=== PATIENT | male | born 1955 | race Caucasian/White ===

== ENCOUNTER 2025-07-07 08:11 | Outpatient (CLI) | payer MEDICARE, SELFPAY ==
--- NOTE | ~2025-07-07 | XR_ITS ---
XR_CERV2-3V_CR INDICATION: M54.2 - Cervicalgia COMPARISON: None TECHNIQUE: AP, lateral and open-mouth odontoid views of the cervical spine were obtained. FINDINGS: The examination demonstrates normal cervical height and alignment. No compression fractures or wedging is noted. The paravertebral soft tissues are unremarkable. Degenerative changes with disc space narrowing and endplate sclerosis at C3-C4 and C5-C6 and C6-C7. IMPRESSION: No acute fracture or subluxation. Reviewed, dictated and finalized at location S. REPAIRER
--- NOTE | ~2025-07-07 | XR_ITS ---
XR shoulder LT min 2V 07/07/2025 08:52 Indication: Left shoulder replacement 2000. Procedure: 3 views left shoulder Comparison: No prior studies for comparison. 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 There is a healed mid shaft fracture. Prosthesis appears to be well seated. Hardware intact. No acute fracture or traumatic malalignment. Impression: 1: No acute bone or joint abnormality. Reviewed, dictated and finalized at location O. CAL DELIVERY TECHNICIAN Impression: 1: No acute bone or joint abnormality.
--- OUTSIDE RECORDS SUMMARY | 2025-07-07 08:18 | XMS_ITS | Encounter Summary ---
Author Organization [facility] Address [address] [place] [address] Phone Care Team Providers Care Roller Shop Utility Worker Name Role Phone Sergio Cardenas MD Primary Care Provider +- [phone] Silas Mcdonnell MD PhD Unavailable Fabrice Bahena MD PhD Unavailable Greg Espinoza MD Unavailable Luz Elena Fritz [facility] Unavailable +[phone] Aki Grande DO Primary Care Provider [phone] Encounter Details Date Type Department Care Team (Latest Contact Info) Description 05/29/2019 Orders Only [facility] Scanning, Provider Social History Tobacco Use Types Packs/Day Years Used Date Smoking Tobacco: Never Smokeless Tobacco: Never Alcohol Use Standard Drinks/Week Comments Not Currently 0 (1 standard drink = 0.6 oz pur e alcohol) Sex and Gender Information Value Date Recorded Sex Assigned at Not on file Legal Sex Male 12:12 AM CHECKMAN Gender Identity Not on file Sexual Orientation Not on file Occupation Industry Job Start Date Job End Date retired Not on file Not on file Not on file documented as of this encounter Plan of Treatment Not on file documented as of this encounter Procedures Procedure Name Priority Date/Time Associated Diagnosis Comments CARDIOLOGY DOCUMENT SCAN 05/29/2019 documented in this encounter Results * SCAN - CARDIOLOGY (05/29/2019) Anatomical Region Laterality Modality Other Provider Scanning [facility] SERVICES PROCEDURES Final Result documented in this encounter Visit Diagnoses Not on filedocumented in this encounter Care Teams Roller Shop Utility Worker Relationship Specialty Start Date End Date Sergio Cardenas MD [address] [facility] [address] [place] [address] PCP - General 04/05/17 10/14/24 Aki Grande DO [address] [facility] [place] [place] Mailstop [phone] [place] [address] PCP - General Internal Medicine 10/15/24 [facility] PhD [address] [place] [address] [address] [facility] [address] [place] [address] Neurologist Neurology 06/26/19 Fabrice Bahena MD PhD [address] [place] [address] [address] [address] Referring Physician Cardiology 08/09/19 Greg Espinoza MD [address] [facility] [address] [place] [address] [place] [address] Surgeon General Surgery 08/26/19 Luz Elena Fritz [facility] [address] [facility] [place] [place] Mailstop [phone] [place], [place] [address] [facility] Outpatient Line Service Supervisor 09/26/23 09/26/23 documented as of this encounter
--- OUTSIDE RECORDS SUMMARY | 2025-07-07 08:18 | XMS_ITS | Encounter Summary ---
Author Organization [facility] Facility Care Team Providers Care Rn Documentation Name Role Phone Elio Pizano MD Primary Care Provider Sergio Cardenas MD Primary Care Provider +- [phone] Keara Aguilar MD Primary Care Provider [phone] Sergio Cardenas MD Primary Care Provider + [phone] Sergio Cardenas MD Primary Care Provider + [phone] Silas Mcdonnell MD PhD Unavailable Fabrice Bahena MD PhD Unavailable [phone] Greg Espinoza MD Unavailable Luz Elena Fritz PRINCIPAL STRATEGIST Unavailable [phone] Aki Grande DO Primary Care Provider [phone] Encounter Details Date Type Department Care Team (Latest Contact Info) Description 06/30/2015 Orders Only [facility] CLINCONV ProviderGabriella MD [address] [place] [address] Social History Tobacco Use Types Packs/Day Years Used Date Smoking Tobacco: Never Assessed Sex and Gender Information Value Date Recorded Sex Assigned at Not on file Legal Sex Male 12:12 AM MAJOR DONOR COORDINATOR Gender Identity Not on file Sexual Orientation Not on file documented as of this encounter Plan of Treatment Not on file documented as of this encounter Procedures Procedure Name Priority Date/Time Associated Diagnosis Comments CARDIOLOGY REPORT 04/28/2017 12: 00 AM CDT documented in this encounter Results * CARDIOLOGY REPORT (04/28/2017 12:00 AM CDT) Anatomical Region Laterality Modality Other Narrative 04/28/2017 12:00 AM CDT Ordered by an unspecified provider. us Historical Provider [facility] ROMY SANDERSON Final Result documented in this encounter Visit Diagnoses Not on filedocumented in this encounter Care Teams Rn Documentation Relationship Specialty Start Date End Date Elio Pizano MD PCP - General 11/11/16 01/10/17 Sergio Cardenas MD [address] [address] PCP - General 01/11/17 03/06/17 Keara Aguilar MD [address] [address] PCP - General 03/07/17 03/14/17 Sergio Cardenas MD [address] [address] PCP - General 03/15/17 04/04/17 Sergio Cardenas MD [address] [address] PCP - General 04/05/17 10/14/24 Aki Grande DO [address] [facility] ([facility]) Mailstop [phone] [place] [address] PCP - General Internal Medicine 10/15/24 Silas Mcdonnell MD PhD [address] [place] [address] Neurologist Neurology 06/26/19 Fabrice Bahena MD PhD [address] [place] [address] Referring Physician Cardiology 08/09/19 Greg Espinoza MD [address] [place] [address] Surgeon General Surgery 08/26/19 Luz Elena Fritz, [facility] [address] [facility] ([facility]) Mailstop [phone] [place] [address] [facility] Outpatient Credit Interviewer 09/26/23 09/26/23 documented as of this encounter
--- OUTSIDE RECORDS SUMMARY | 2025-07-07 08:18 | XMS_ITS | Encounter Summary ---
Author Organization [facility] Facility Care Team Providers Care Humidifier Attendant Name Role Phone Sergio Cardenas MD Primary Care Provider +- [phone] [facility] Unavailable Fabrice Bahena MD PhD Unavailable [phone] Greg Espinoza MD Unavailable [phone] Luz Elena Fritz [facility] Unavailable [phone] Aki Grande DO Primary Care Provider [phone] Encounter Details Date Type Department Care Team (Latest Contact Info) Description 04/05/2017 Orders Only [facility] CLINCONV ProviderGabriella MD [address] [place] [address] Social History Tobacco Use Types Packs/Day Years Used Date Smoking Tobacco: Never Sex and Gender Information Value Date Recorded Sex Assigned at Not on file Legal Sex Male 12:12 AM BILLBOARD ERECTOR HELPER Gender Identity Not on file Sexual Orientation [...] on filedocumented in this encounter Care Teams Humidifier Attendant Relationship Specialty Start Date End Date Sergio Cardenas MD [address] [facility] [address] [address] PCP - General 04/05/17 10/14/24 Aki Grande DO [address] [facility] ([facility] [place] Mailstop [phone] [place] [address] PCP - General Internal Medicine 10/15/24 Silas Mcdonnell MD PhD [address] [place] [address] [address] Neurologist Neurology 06/26/19 Fabrice Bahena MD PhD [address] [place] [address] [address] Referring Physician Cardiology 08/09/19 Greg Espinoza MD [address] [place] [address] [address] Surgeon General Surgery 08/26/19 Luz Elena Fritz LCSW [address] [facility] ([facility] [place]) Mailstop [phone] [place] [address] [facility] Outpatient Senior Software Engineer Analytics 09/26/23 09/26/23 documented as of this encounter
--- OUTSIDE RECORDS SUMMARY | 2025-07-07 08:18 | XMS_ITS | Encounter Summary ---
Author Organization [facility] Facility Care Team Providers Care Icer Air Conditioning Name Role Phone Elio Pizano MD Primary Care Provider [phone] Sergio Cardenas MD Primary Care Provider +- [phone] Keara Aguilar MD Primary Care Provider Sergio Cardenas MD Primary Care Provider + [phone] Sergio Cardenas MD Primary Care Provider + [phone] Silas Mcdonnell MD PhD Unavailable Fabrice Bahena MD PhD Unavailable [phone] Greg Espinoza MD Unavailable Luz Elena Fritz AUTISM TUTOR Unavailable [phone] Aki Grande DO Primary Care Provider [phone] Encounter Details Date Type Department Care Team (Latest Contact Info) Description 02/01/2015 Orders Only [facility] CLINCONV ProviderGabriella MD [address] [place] [address] Social History Tobacco Use Types Packs/Day Years Used Date Smoking Tobacco: Never Assessed Sex and Gender Information Value Date Recorded Sex Assigned at Not on file Legal Sex Male 12:12 AM MATERIAL HANDLER Gender Identity Not on file Sexual Orientation Not on file documented as of this encounter Plan of Treatment Not on file documented as of this encounter Procedures Procedure Name Priority Date/Time Associated Diagnosis Comments CARDIOLOGY REPORT 09/20/2016 12: 00 AM CDT documented in this encounter Results * CARDIOLOGY REPORT (09/20/2016 12:00 AM CDT) Anatomical Region Laterality Modality Other Narrative 09/20/2016 12:00 AM CDT Ordered by an unspecified provider. us Historical Provider [facility] ROMY SANDERSON Final Result documented in this encounter Visit Diagnoses Not on filedocumented in this encounter Care Teams Icer Air Conditioning Relationship Specialty Start Date End Date Elio Pizano MD PCP - General 11/11/16 01/10/17 Sergio Cardenas MD [address] [address] PCP - General 01/11/17 03/06/17 Keara Aguilar MD [address] [address] PCP - General 03/07/17 03/14/17 Sergio Cardenas MD [address] [address] PCP - General 03/15/17 04/04/17 Sergio Cardenas MD [address] [address] PCP - General 04/05/17 10/14/24 Aki Grande DO [address] [facility] ([facility]) Mailstop [phone] [place] [address] PCP - General Internal Medicine 10/15/24 Silas Mcdonnell MD PhD [address] [place] [address] Neurologist Neurology 06/26/19 Fabrice Bahena MD PhD [address] [place] [address] Referring Physician Cardiology 08/09/19 Greg Espinoza MD [address] [place] [address] Surgeon General Surgery 08/26/19 Luz Elena Fritz, [facility] [address] [facility] ([facility]) Mailstop [phone] [place] [address] [facility] Outpatient Supervisor Soakers 09/26/23 09/26/23 documented as of this encounter
--- OUTSIDE RECORDS SUMMARY | 2025-07-07 08:18 | XMS_ITS | Encounter Summary ---
Author Organization [facility] Address [address] [place] [address] Care Team Providers Care Senior Private Client Advisor Name Role Phone Sergio Cardenas MD Primary Care Provider [phone] Silas Mcdonnell MD PhD Unavailable Fabrice Bahena MD PhD Unavailable Greg Espinoza MD Unavailable Luz Elena Fritz [facility] Unavailable Aki Grande DO Primary Care Provider Encounter Details Date Type Department Care Team (Late st Contact Info) Description 11/27/2022 Documentation [facility] [address] [facility] [address] [place] [address] Charline Granda MD [address] [facility] [place] [id number] [place] [address] Social History Tobacco Use Types Packs/Day Years Used Date Smoking Tobacco: Never Smokeless Tobacco: Never Alcohol Use Standard Drinks/Week Comments Not Currently 0 (1 standard drink = 0.6 oz pur e alcohol) AUDIT-C Answer Date Recorded Q1: How often do you have a drink containing alcohol? Never 11/07/2022 Q2: How many drinks containi ng alcohol do you have on a typical day when you are drinking? Patient does not drink Q3: How often do you have si x or more drinks on one occasion? Never 11/07/2022 PHQ-2 Answer Date Recorded PHQ-2 Score 0 07/23/2019 Sex and Gender Information Value Date Recorded Sex Assigned at Not on file Legal Sex Male 12:12 AM SALES CENTER ASSOCIATE Gender Identity Not on file Sexual Orientation Not on file Occupation Industry Job Start Date Job End Date retired Not on file Not on file Not on file documented as of this encounter Plan of Treatment Not on file documented as of this encounter Visit Diagnoses Not on filedocumented in this encounter Care Teams Senior Private Client Advisor Relationship Specialty Start Date End Date Sergio Cardenas MD [address] [place] [address] [address] PCP - General 04/05/17 10/14/24 Aki Grande DO [address] [facility] [place] Mailstop [phone] [place] [address] PCP - General Internal Medicine 10/15/24 Silas Mcdonnell MD PhD [address] [place] [address] [address] Neurologist Neurology 06/26/19 Fabrice Bahena MD PhD [address] [place] [address] [address] Referring Physician Cardiology 08/09/19 Greg Espinoza MD [address] [place] [address] [address] Surgeon General Surgery 08/26/19 Luz Elena Fritz MILLINERY DEPARTMENT MANAGER [address] [facility] [place] Mailstop [phone] [place] [address] [facility] Outpatient Loan Clerk 09/26/23 09/26/23 documented as of this encounter
--- OUTSIDE RECORDS SUMMARY | 2025-07-07 08:18 | XMS_ITS | Encounter Summary ---
Author Organization [facility] Facility Care Team Providers Care Sponge Packer Name Role Phone Elio Pizano MD Primary Care Provider Sergio Cardenas MD Primary Care Provider +- [phone] Keara Aguilar MD Primary Care Provider Sergio Cardenas MD Primary Care Provider + [phone] Sergio Cardenas MD Primary Care Provider + [phone] Silas Mcdonnell MD PhD Unavailable Fabrice Bahena MD PhD Unavailable [phone] Greg Espinoza MD Unavailable Luz Elena Fritz SENIOR ENERGY MARKET COORDINATOR Unavailable [phone] Aki Grande DO Primary Care Provider [phone] Encounter Details Date Type Department Care Team (Latest Contact Info) Description 04/02/2015 Orders Only [facility] CLINCONV ProviderGabriella MD [address] [place] [address] Social History Tobacco Use Types Packs/Day Years Used Date Smoking Tobacco: Never Assessed Sex and Gender Information Value Date Recorded Sex Assigned at Not on file Legal Sex Male 12:12 AM JUDGE'S CLERK Gender Identity Not on file Sexual Orientation Not on file documented as of this encounter Plan of Treatment Not on file documented as of this encounter Procedures Procedure Name Priority Date/Time Associated Diagnosis Comments SCAN - LABS 09/20/2016 12:00 AM CDT documented in this encounter Results * SCAN - LABS (09/20/2016 12:00 AM CDT) Narrative 09/20/2016 12:00 AM CDT Ordered by an unspecified provider. us Historical Provider Final Res ult documented in this encounter Visit Diagnoses Not on filedocumented in this encounter Care Teams Sponge Packer Relationship Specialty Start Date End Date Elio Pizano MD PCP - General 11/11/16 01/10/17 Sergio Cardenas MD [address] [address] PCP - General 01/11/17 03/06/17 Keara Aguilar MD [address] [place] [address] PCP - General 03/07/17 03/14/17 Sergio Cardenas MD [address] [address] PCP - General 03/15/17 04/04/17 Sergio Cardenas MD [address] [address] PCP - General 04/05/17 10/14/24 Aki Grande DO 45[address] [facility] [phone] [place] [address] PCP - General Internal Medicine 10/15/24 Silas Mcdonnell MD PhD [address] [place] [address] Neurologist Neurology 06/26/19 Fabrice Bahena MD PhD [address] [place] [address] Referring Physician Cardiology 08/09/19 Greg Espinoza MD [address] [place] [address] Surgeon General Surgery 08/26/19 Luz Elena Fritz, [facility] [address] [facility] ([facility] Mailstop [phone] [place] [address] [facility] Outpatient Set Up Mechanic 09/26/23 09/26/23 documented as of this encounter
--- OUTSIDE RECORDS SUMMARY | 2025-07-07 08:18 | XMS_ITS ---
Author Organization [facility] Address [address] [place] [address] Care Team Providers Care Balling Machine Operator Name Role Phone Silas Mcdonnell MD PhD Unavailable Fabrice Bahena MD PhD Unavailable Greg Espinoza MD Unavailable Aki Grande DO Primary Care Provider Active Problems Problem Noted Date Diagnosed Date Cardiac arrhythmia 09/20/2023 S/P repair of inguinal hernia 06/16/2023 Right inguinal hernia 05/10/2023 History of revision of total shoulder arthroplas ty 11/28/2022 Failed arthroplasty, initial encounter 3 Status post total replacement of left shoulder 0 09/07/2022 Overview (09/07/2022): Added automatically from request for surgery [id number] Pre-op testing 10/01/2021 Loosening of total shoulder replacement 09/14/19 Overview (09/13/2021): Added automatically from request for surgery [id number] Essential hypertension 08/23/2021 Chronic combined systolic an d diastolic heart failure ([facility]/H[facility]) 04/16/2020 Assessment & Plan (04/08/2021 8:38 PM CDT): He appears euvolemic on exam today with NYHA class I-II symptoms. Unfortunately his LV function has not improved despite PCI, and in fact his LVEF has remained stable ~40% since 2016. We will continue entresto 49-51mg and carvedilol 12.5mg BID, and we will add spironolactone 25mg in hopes of improving LV function. We will reduce lasix to 40mg once daily, as he appears euvolemic and recent NTproBNP have been normal. We will consider stopping lasix at the next visit altogether, since he will be on spironolactone. Assessment & Plan (12/03/2020 1:17 PM CDT): He appears euvolemic on exam with NYHA class 1-2 symptoms. His NT proBNP was in normal range. He has continued to have mild LV systolic dysfunction despite optimal heart failure therapy. We will therefore send him for PCI of the LAD lesion, which had a positive IFR in July 2019. We will continue on carvedilol 12.5mg BID, Entresto 49-51mg BID, and Lasix 40 mg twice daily. We will repeat an echocardiogram at our next visit in 6 months. Pancytopenia due to antineoplastic chemotherapy 09/11/2019 Assessment & Plan (09/11/2019 3:55 PM FLOUR WORKER): - Transfuse for hemoglobin > 7, platelet count > 10k unless actively bleeding - Hold pharmacologic DVT prophylaxis until patient is in count recovery and platelet count consistently > 30k Severe malnutrition 08/30/2019 Assessment & Plan (09/02/2019 12:22 PM FLOUR WORKER): Patient p/w sever malnutrition. Per has had significant weight loss and per and pt appetite has been poor -Per nutrition consult, nutrition supplement TID; encourage pt to try and eat smaller more frequent meals; high bernard/high protein to increase intake, consider appetite stimulant Assessment & Plan (08/30/2019 10:14 AM FLOUR WORKER): -nutrition consult Diffuse large B-cell lymphoma of liver 0 Assessment & Plan (04/08/2021 8:39 PM CDT): With history of R-CEOP, currently in remission. Assessment & Plan (12/03/2020 1:17 PM CDT): Current in remission. Assessment & Plan (09/11/2019 3:35 PM FLOUR WORKER): S/p R-CEOP 08/31 with placement of Neulasta OBI, now complicated by febrile neutropenia as discussed elsewhere. - Medical oncology consult Assessment & Plan (09/10/2019 7:56 PM FLOUR WORKER): - s/p R-CEOP 08/31 - follows with Dr. Mosquera - med onc consult placed Assessment & Plan (09/02/2019 12:25 PM FLOUR WORKER): Germinal center type. Formally dx in 08/22/2018 with liver biopsy showing large B cell lymphoma. Onc appointment was 08/29 but he was admitted for hypotension. Follows with Dr. Mosquera TTE with EF46%, mild concentric LVH, grade I diastolic dysfxn. B12 wnl, hep panel negative. PET CT: extensive liver involvement with poss L supraclavicular node involvement - initiating R-CEOP 08/31, s/p day 3 CEOP -prednisone 100mg x5 day course (08/31-09/04) -acyclovir 400mg BID for ppx on discharge -allopurinol 300mg daily for 10 day course (08/31- 09/08) -neulasta at discharge -PT/OT/nutrition Assessment & Plan (08/31/2019 10:43 AM FLOUR WORKER): Germinal center type. Formally dx in 08/22/2018 with liver biopsy showing large B cell lymphoma -Onc appointment was 08/29 but he was admitted for hypotension -F/u onc consult recommendations in AM, touch base with Dr. Mosquera -TTE with EF46%, mild concentric LVH, grade I diastolic dysfxn -B12 wnl, hep panel negative - PET CT: extensive liver involvement with poss L supraclavicular node involvement - initiating R-CEOP 08/31 Persons encountering health services in other specified circumstances 08/30/2019 Coronary artery disease invo lving [place] coronary artery of [place] heart without angina pectoris 07/23/2019 Overview (07/24/2019): Added automatically from request for surgery [id number] Assessment & Plan (04/08/2021 8:40 PM CDT): S/p PCI to LAD in 12/2020. We will continue ASA 81mg, high intensity statin, plavix and plan to stop plavix in June after 6 months of therapy. We will check a lipid panel. Assessment & Plan (12/03/2020 1:17 PM CDT): He continues on aspirin 81 mg and high-intensity statin. We will send him for PCI as noted above. Lipid panel was in adequate range in April 2020. 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 Presented with symptomatic PVCs and underwent dofetilide loading 09/2023 He is doing well on dofetilide with improvement in his palpitations QT interval stable Continue dofetilide 500 mcg BID and coreg 12.5 mg BID BMP and EKG every 3 months Assessment & Plan (04/08/2021 8:39 PM CDT): Symptoms well controlled on carvedilol. Assessment & Plan (12/03/2020 1:17 PM CDT): Symptoms have been well controlled on carvedilol. Cardiomyopathy 06/01/2015 Assessment & Plan (09/11/2019 3:47 PM FLOUR WORKER): History of mixed cardiomyopathy; TTE 08/2019 with mild LVE with mild global LV systolic dysfunction (EF 46%); Small pericardial effusion. Compared with prior TTE on 07/24/19, the pericardial effusion is new and the EF is substantially improved. Does not appear centrally volume overloaded on exam. 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 Last TTE on 07/2019 with LVEF of 28%, diastolic dysfunction. Repeat TTE performed prior to R-CEOP initiation, EF 46%, grade I DD, mild LVH. -Can likely dose reduce and re-introduce in coming days -Holding GDMT for now given hypotension. 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 Past Treatment and Therapy Plans Line Care Plan Name Start Date Discontinue Date Treatment Medications Discontinue Reason Plan Provider IV MAINTENANCE THERAPY PLAN 12/12/2019 01/09/2020 No medications scheduled. Change in Level of Care Amanda Mosquera MD Oncology Chemotherapy Treatment Plan Name Start Date Discontinue Date Treatment Medications Discontinue Reason Plan Provider Cycles R-CEOP: (Cyclophospha mide / Etoposide / VinCRIStine / PredniSONE / RiTUXimab) 21 Day Cycles - DLBCL 08/31/19 20 01/09/2020 cycloPHOSphamide (CYTOXAN) IVPB (vial 20 mg/mL) (J9075)etoposide (TOPOSAR;VEPESID)etopo side (VEPESID) IVPB in 500 mLmethotrexate-hydroco rtisone (PF) intrathecalriTUXimab (RITUXAN) IVPB in 500 mLvinCRIStine (ONCOVIN) IVPB in 50 mL Change in Level of Care Amanda Mosquera MD 6 of 6 cycles started Lifetime Dose Tracking * Chemical Lifetime Dose Automatic Entry Manual Entr y Fluoro Time 43 minutes 0.8 minutes 42.2 minutes cyclophosphamide 4,342.593 mg/m2 (9,890 mg) 4,342.593 mg/m2 (9,890 mg) 0 mg/m2 (0 mg) etoposide 388.893 mg/m2 (890 mg) 388.893 mg/m2 (890 mg) 0 mg/m2 (0 mg) Air kerma at the reference point (Ka,r) 3,260 mGy 109 mGy 3,151 mGy DLP 4,338 mGycm 4,338 mGycm 0 mGycm DAP 178.628 Gy-cm2 0 Gy-cm2 178.628 Gy-cm 2
--- OUTSIDE RECORDS SUMMARY | 2025-07-07 08:18 | XMS_ITS | Encounter Summary ---
Author Organization [facility] Facility Care Team Providers Care Ground Crew Chief Name Role Phone Elio Pizano MD Primary Care Provider Sergio Cardenas MD Primary Care Provider [phone]- [phone] Keara Aguilar MD Primary Care Provider Sergio Cardenas MD Primary Care Provider + [phone] Sergio Cardenas MD Primary Care Provider + [phone] Silas Mcdonnell MD PhD Unavailable Fabrice Bahena MD PhD Unavailable [phone] Greg Espinoza MD Unavailable Luz Elena Fritz DIVERSIFIED CROPS FARMWORKER Unavailable [phone] Aki Grande DO Primary Care Provider [phone] Encounter Details Date Type Department Care Team (Latest Contact Info) Description 02/10/2015 Orders Only [facility] CLINCONV ProviderGabriella MD [address] [place] [address] Social History Tobacco Use Types Packs/Day Years Used Date Smoking Tobacco: Never Assessed Sex and Gender Information Value Date Recorded Sex Assigned at Not on file Legal Sex Male 12:12 AM DIETARY DIRECTOR Gender Identity Not on file Sexual Orientation [...] on filedocumented in this encounter Care Teams Ground Crew Chief Relationship Specialty Start Date End Date Elio Pizano MD PCP - General 11/11/16 01/10/17 Sergio Cardenas MD [address] [address] PCP - General 01/11/17 03/06/17 Keara Aguilar MD [address] [address] PCP - General 03/07/17 03/14/17 Sergio Cardenas MD [address] [address] PCP - General 03/15/17 04/04/17 Sergio Cardenas MD [address] [address] PCP - General 04/05/17 10/14/24 Aki Grande DO [address] [facility] [place] [place] Mailstop [phone] [place] [address] PCP - General Internal Medicine 10/15/24 Silas Mcdonnell MD PhD [address] [place] [address] Neurologist Neurology 06/26/19 Fabrice Bahena MD PhD [address] [place] [address] Referring Physician Cardiology 08/09/19 Greg Espinoza MD [address] [place] [address] Surgeon General Surgery 08/26/19 Luz Elena Fritz, [facility] [address] [facility] [place] [place] Mailstop [phone] [place] [address] [employer] Outpatient Environmental Services Assistant 09/26/23 09/26/23 documented as of this encounter
--- OUTSIDE RECORDS SUMMARY | 2025-07-07 08:18 | XMS_ITS | Encounter Summary ---
Author Organization [facility] Facility Care Team Providers Care Crusher And Blender Operator Name Role Phone Elio Pizano MD Primary Care Provider Sergio Cardenas MD Primary Care Provider +- [phone] Keara Aguilar MD Primary Care Provider Sergio Cardenas MD Primary Care Provider + [phone] Sergio Cardenas MD Primary Care Provider + [phone] Silas Mcdonnell MD PhD Unavailable Fabrice Bahena MD PhD Unavailable [phone] Greg Espinoza MD Unavailable Luz Elena Fritz WATER SPONGER Unavailable [phone] Aki Grande DO Primary Care Provider [phone] Encounter Details Date Type Department Care Team (Latest Contact Info) Description 02/02/2015 Orders Only [facility] CLINCONV ProviderGabriella MD [address] [place] [address] Social History Tobacco Use Types Packs/Day Years Used Date Smoking Tobacco: Never Assessed Sex and Gender Information Value Date Recorded Sex Assigned at Not on file Legal Sex Male 12:12 AM ELECTRONICS COMMODITY MANAGER Gender Identity Not on file Sexual Orientation Not on file documented as of this encounter Plan of Treatment Not on file documented as of this encounter Procedures Procedure Name Priority Date/Time Associated Diagnosis Comments CARDIOLOGY REPORT 09/20/2016 12: 00 AM CDT CARDIOLOGY REPORT 09/20/2016 12: 00 AM CDT CARDIOLOGY REPORT 09/20/2016 12: 00 AM CDT documented in this encounter Results * CARDIOLOGY REPORT (09/20/2016 12:00 AM CDT) Anatomical Region Laterality Modality Other Narrative 09/20/2016 12:00 AM CDT Ordered by an unspecified provider. [facility] Provider CV CARDIAC SERVICES PROCE DURES Final Result * CARDIOLOGY REPORT (09/20/2016 12:00 AM CDT) Anatomical Region Laterality Modality Other Narrative 09/20/2016 12:00 AM CDT Ordered by an unspecified provider. [facility] Provider MD CV CARDIAC SERVICES PROCE DURES Final Result * CARDIOLOGY REPORT (09/20/2016 12:00 AM CDT) Anatomical Region Laterality Modality Other Narrative 09/20/2016 12:00 AM CDT Ordered by an unspecified provider. [facility] Provider CV CARDIAC SERVICES PROCE DURES Final Result documented in this encounter Visit Diagnoses Not on filedocumented in this encounter Care Teams Crusher And Blender Operator Relationship Specialty Start Date End Date Elio Pizano MD PCP - General 11/11/16 01/10/17 Sergio Cardenas MD [address] [address] PCP - General 01/11/17 03/06/17 Keara Aguilar MD [address] [place] [address] PCP - General 03/07/17 03/14/17 Sergio Cardenas MD [address] [place] [address] PCP - General 03/15/17 04/04/17 Sergio Cardenas MD [address] [place] [address] PCP - General 04/05/17 10/14/24 Aki Grande DO [address] [facility] [place] [place] Mailstop [phone] [place], [place] [phone] PCP - General Internal Medicine 10/15/24 [facility] [address] [address] Neurologist Neurology 06/26/19 Fabrice Bahena MD PhD [address] [address] Referring Physician Cardiology 08/09/19 Greg Espinoza MD [address] [address] Surgeon General Surgery 08/26/19 Luz Elena Fritz WATER SPONGER [address] [facility] [place] [place] Mailstop [phone] [place] [address] [employer] Outpatient Assurance Senior Manager 09/26/23 09/26/23 documented as of this encounter
--- OUTSIDE RECORDS SUMMARY | 2025-07-07 08:18 | XMS_ITS | Clinical Summary ---
Author Organization [facility] Address [address] [place] [address] Care Team Providers Care Studio Data Analyst Name Role Phone Silas Mcdonnell MD PhD Unavailable Fabrice Bahena MD PhD Unavailable Greg Espinoza MD Unavailable Aki Grande DO Primary Care Provider [phone] Allergies No known active allergies Medications cholecalciferol (VITAMIN D-3) 2000 unit tablet Take 1 tablet (2,000 Units total) by mouth daily 30 tablet 11 1 Active eplerenone (INSPRA) 25 mg tabletIndications:E ssential hypertension,Chroni c combined systolic and diastolic heart failure (HCC),Coronary artery disease involving little shell tribe coronary artery of little shell tribe heart without angina pectoris,Mixed hyperlipidemia TAKE 1 TABLET BY MOUTH EVERY DAY 90 tablet 3 3 Active coenzyme Q10 10 mg capsuleIndications: heart health Take 1 capsule (10 mg total) by mouth every morning Active LORazepam (ATIVAN) 0.5 mg tabletIndications:D iagnosis unknown Take 1 tablet (0.5 mg total) by mouth daily as needed 4 Active tadalafiL (CIALIS) 20 mg tabletIndications:D iagnosis unknown Take 0.5 tablets (10 mg total) by mouth daily as needed 4 Active carvediloL (COREG) 12.5 mg tablet TAKE 1 TABLET BY MOUTH TWICE A DAY WITH FOOD 180 tablet 3 5 Active apixaban (ELIQUIS) 5 mg tablet Take 1 tablet (5 mg total) by mouth 2 (two) times a day 180 tablet 3 5 Active sacubitriL-valsarta n (Entresto) 49-51 mg tablet TAKE 1 TABLET BY MOUTH TWICE A DAY 180 tablet 1 5 Active dapagliflozin propanediol (FARXIGA) 10 mg tabletIndications:H eart Failure Take 1 tablet (10 mg total) by mouth daily 90 tablet 3 5 Active Active Problems Problem Noted Date Diagnosed Date Cardiac arrhythmia 09/20/2023 S/P repair of inguinal hernia 06/16/2023 Right inguinal hernia 05/10/2023 History of revision of total shoulder arthroplas ty 11/28/2022 Failed arthroplasty, initial encounter 3 Status post total replacement of left shoulder 0 09/07/2022 Overview (09/07/2022): Added automatically from request for surgery [id number] Pre-op testing 10/01/2021 Loosening of total shoulder replacement 09/14/19 Overview (09/13/2021): Added automatically from request for surgery [id number] Essential hypertension 08/23/2021 Chronic 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 Per has had significant weight loss and per and pt appetite has been poor -Per nutrition consult, nutrition supplement TID; encourage pt to try and eat smaller more frequent meals; high bernard/high protein to increase intake, consider appetite stimulant Assessment & Plan (08/30/2019 10:14 AM RETAIL SHIFT MANAGER): -nutrition consult Diffuse large B-cell lymphoma of liver 0 Assessment & Plan (04/08/2021 8:39 PM CDT): With history of R-CEOP, currently in remission. Assessment & Plan (12/03/2020 1:17 PM CDT): Current in remission. 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 - Medical oncology consult Assessment & Plan (09/10/2019 7:56 PM RETAIL SHIFT MANAGER): - s/p R-CEOP 08/31 - follows with Dr. Mosquera - med onc consult placed Assessment & Plan (09/02/2019 12:25 PM RETAIL SHIFT MANAGER): Germinal center type. Formally dx in 08/22/2018 [...] -PT/OT/nutrition Assessment & Plan (08/31/2019 10:43 AM RETAIL SHIFT MANAGER): Germinal center type. Formally dx in 08/22/2018 [...] circumstances 08/30/2019 Coronary artery disease invo lving little shell tribe coronary artery of little shell tribe heart without angina pectoris 07/23/2019 Overview (07/24/2019): Added automatically from request for surgery [id number] Assessment & Plan (04/08/2021 8:40 PM CDT): [...] Osteoarthritis 09/20/2016 PVC (premature ventricular contraction) 09/21/19 Assessment & Plan (10/27/2023 11:57 AM CDT): [...] 06/01/2015 Assessment & Plan (09/11/2019 3:47 PM RETAIL SHIFT MANAGER): History of mixed cardiomyopathy; TTE 08/2019 with [...] home Assessment & Plan (09/10/2019 7:59 PM RETAIL SHIFT MANAGER): - does have lower extremity edema however no other signs of volume overload (no pulm edema, no symptoms) - previously HF meds held due to hypotension during last admit - hold diuresis for now given fever/acute illness Assessment & Plan (09/02/2019 12:20 PM RETAIL SHIFT MANAGER): 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 Last TTE on 07/2019 with LVEF of 28%, diastolic dysfunction. Repeat TTE performed prior to R-CEOP initiation, EF 46%, grade I DD, mild LVH. -Can likely dose reduce and re-introduce in coming days -Holding GDMT for now given hypotension. 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 Last TTE on 07/2019 with LVEF of 28%, diastolic dysfunction Holding GDMT for now given hypotension Can likely dose reduce and re-introduce in coming days Lymphadenopathy Encounters Date Type Department Care Team Description 06/23/2025 10:00 AM RETAIL SHIFT MANAGER Lab [address] [address] Aftercare following left hip joint replacement surgery; Hip pain, left from Last 3 Months Surgical History Surgery Date Site/Laterality Comments TOTAL SHOULDER REPLACEMENT 07/10/2000 - 07/09/[address] US GUIDED BIOPSY LIVER 07/26/2019 N/A BIOPSY LIVER 08/22/2019 N/A CARDIAC CATHETERIZATION 12/29/2020 with stents TOTAL HIP ARTHROPLASTY 07/10/2000 - 07/09/2001 Bilateral hardware bilaterally REPAIR QUADRICEPS / HAMSTRING MUSCLE 07/10/1986 - 07/09/1987 COLONOSCOPY 07/10/1999 - 07/09/2000 ANGIOPLASTY LASIK REVISION TOTAL SHOULDER ARTHROPLASTY 11/24/2022 Left SHOULDER ARTHROSCOPY 10/04/2021 Left Left shoulder arthroscopic tissue biopsies for culture and extensive debridement. LAPAROSCOPIC INGUINAL HERNIA REPAIR 05/30/2023 Bilateral Robotic DRISS Medical History Medical History Date Comments Osteoarthritis Cancer (HCC) Coronary artery disease s/p cait nary stenting 12/2020 Arrhythmia s/p PVC ablation 2014 Hypertension well controlled Hyperlipidemia on statin Anxiety Heart disease Lymphoma (HCC) 08/2019 last chemo 0 Family History Medical History Relation Name Comments Arthritis Brother Xavier Heart attack Brother Xavier Diabetes Father Nito Hearing loss Father Nito Heart disease Father Nito Hypertension Father Nito Hypertension Mother Alana Stroke Mother Alana Cancer Sister Ysabel Anesthesia problems Neg Hx Relation Name Status Comments Brother Xavier Father Nito Mother Alana Sister Ysabel Social History Tobacco Use Types Packs/Day Years Used Date Smoking Tobacco: Never Passive Smoke Exposure: Past Smokeless Tobacco: Never Tobacco Cessation:Counseling Given: Not Answered Alcohol Use Standard Drinks/Week Comments Not Currently 0 (1 standard drink = 0.6 oz pur e alcohol) AUDIT-C Answer Date Recorded Q1: How often do you have a drink containing alcohol? Never 05/18/2023 Q2: How many drinks containi ng alcohol do you have on a typical day when you are drinking? Patient does not drink Q3: How often do you have si x or more drinks on one occasion? Never 05/18/2023 PHQ-2 Answer Date Recorded PHQ-2 Score 0 07/23/2019 Personal Safety Answer Date Recorded Have you ever been in or are you currently in a harmful physical or emotional relationship or is someone making you feel afraid or unsafe? Denies 09/13/2024 Sex and Gender Information Value Date Recorded Sex Assigned at Not on file Legal Sex Male 12:12 AM RETAIL SHIFT MANAGER Gender Identity Not on file Sexual Orientation Not on file Occupation Industry Job Start Date Job End Date retired Not on file Not on file Not on file Last Filed Vital Signs Vital Sign Reading Time Taken Comments Blood Pressure 119/78 04/03/2025 1:10 PM CDT Pulse 80 04/03/2025 1:10 PM CDT Temperature 36.5 C (97.7 F) 04/03/2025 1:10 PM CDT Respiratory Rate 17 04/03/2025 1:10 PM CDT Oxygen Saturation 99% 04/03/2025 1:10 PM CDT Inhaled Oxygen Concentration - - Weight 107 kg (236 lb) 04/03/2025 1:10 PM CDT Height 186.2 cm (6' 1.31) 04/03/2025 1:10 PM CD T Body Mass Index 30.88 04/03/2025 1:10 PM CDT Plan of Treatment Health Maintenance Due Date Last Done Comments Colon Cancer Screening-Colonoscopy 1955 DTaP/Tdap/Td Vaccine (1 - Tdap) 1964 Hepatitis B Screening 1971 Pneumococcal vaccine 65+ (1 of 2 - PCV) 1972 Zoster Vaccine (1 of 2) 1972 Well Visit 65+ 2018 Depression Screening 07/23/2020 07/23/2019, 07/23/19 20 Fall Risk Assessment 09/24/2024 09/25/2023 Influenza Vaccine (#1) 2025 Hepatitis C Screening Completed 08/30/2019 Medical Devices Implanted Type Area Narrow Gauge Brakeman Device Identifier Shelf Expiration Date Model / Serial / Lot Davol Inc/C R Bard Mesh Surgical Mid Anatomical Synthetic Patch 3dmax 5x7in [id number] - [id number] - [id number] Implanted:Qty: 1 on 05/30/2023 by Steven Azar MD at [facility] Mesh Right: Inguinal Davol Inc/C R Bard 01/05/2028 [id number] / [id number] / [id number] Davol Inc/C R Bard Mesh Surgical Inguinal Hernia Synthetic Patch 3dmax 5x7in [id number] - [id number] - [id number] Implanted:Qty: 1 on 05/30/2023 by Steven Azar MD at [facility] Mesh Right: Inguinal Davol Inc/C R Bard 12/05/2027 [id number] / [id number] / [id number] Medtronic [employer] X [id number] Resolute John 3mm 2.1-2.7fr 18mm 140cm Rapid Exchange Radiopaque - [id number] Implanted:Qty: 1 on 12/29/2020 by Chema Farris MD at [facility] Stent Medtronic Inc 10/19/2022 [id number] / / [id number] Medtronic [employer] Inc X [id number] Resolute John 3mm 2.1-2.7fr 34mm 140cm Rapid Exchange Radiopaque - [id number] Implanted:Qty: 1 on 12/29/2020 by Chema Farirs MD at [facility] Stent Medtronic Inc 10/08/2022 [id number] / / [id number] Bilateral Hip Replacement Hip Left Shoulder Replacement Shoulder Cardiac Stents Implanted:Qty: 2 Heart Vasorum Ltd Kclt-07 Device 7fr Closure Celt Acd Vascular Sterile Latex Free Disposable Tseffanie - [id number] Implanted:Qty: 1 on 12/29/2020 by Chema Farris MD at [facility] VASORUM LTD 05/26/2023 KCLT-07 / / [id number] Synthes Lcp Combi [id number] 16 Hole Limit Contact Taper End Plate Bone 223.661 - [id number] Implanted:Qty: 1 on 11/24/2022 by Ezequiel Perez MD at [facility] Left: Humerus Synthes I 223.661 / / Synthes 3.5mm 6mm 32mm 2.5mm Self Tap Small Hexagonal Socket Low Profile 204.832 - [id number] Implanted:Qty: 2 on 11/24/2022 by Ezequiel Perez MD at [facility] Left: Humerus Synthes I 204.832 / / Synthes 3.5mm 2.9mm 30mm Self Tap Lock Stardrive Conical Head T15 Full 212.111 - [id number] Implanted:Qty: 1 on 11/24/2022 by Ezequiel Perez MD at [facility] Left: Humerus Synthes I 212.111 / / Synthes 3.5mm 2.9mm 28mm Self Tap Lock Stardrive Conical Head T15 Full 212.110 - [id number] Implanted:Qty: 2 on 11/24/2022 by Ezequiel Perez MD at [facility] Left: Humerus Synthes I 212.110 / / Synthes 3.5mm 2.9mm 14mm Self Tap Lock Stardrive Conical Head T15 Full 212.103 - [id number] Implanted:Qty: 3 on 11/24/2022 by Ezequiel Perez MD at [facility] Left: Humerus Synthes I 212.103 / / Synthes Screw 3.5mm 14mm Bone Stainless Steel T15 Strdrv Rces 02.127.114 - [id number] Implanted:Qty: 2 on 11/24/2022 by Ezequiel Perez MD at [facility] Left: Humerus Synthes I 02.127.114 / / [employer] 29mm Full Wedge Augment Shoulder 15d Baseplate Glenoid Gtk069 - [id number] - [id number] Implanted:Qty: 1 on 11/24/2022 by Ezequiel Perez MD at [facility] Left: Humerus [employer] 04/04/2027 [id number] / [id number] / [employer] Inc Tornier Aequalis Perform 15mm Press Fit Long Post Shoulder Ynn988 - [id number] - [id number] Implanted:Qty: 1 on 11/24/2022 by Ezequiel Perez MD at [facility] Left: Humerus [employer] 09/20/2027 [id number] / [id number] / [employer] Aequalis Perform Reversed 5mm 30mm Peripheral Glenoid Screw Kha166 - [id number] Implanted:Qty: 2 on 11/24/2022 by Ezequiel Perez MD at [facility] Left: Humerus [employer] [id number] / / [employer] Aequalis Perform Reversed 5mm 26mm Peripheral Glenoid Screw Nha754 - [id number] Implanted:Qty: 1 on 11/24/2022 by Ezequiel Perez MD at [facility] Left: Shoulder [employer] IJB714 / / [employer] Inc Latitude 8-15mm Restrictor Elbow Restrictor Cement Gqu262 - [id number] - [id number] Implanted:Qty: 1 on 11/24/2022 by Ezequiel Perez MD at [facility] [employer] Inc [id number] 08/10/2027 SZO949 / [id number] / [employer] Simplex P Radiopaque Full Dose Cement Bone Sterile 6191-1-010 - [id number] Implanted:Qty: 1 on 11/24/2022 by Ezequiel Perez MD at [facility] [employer] [id number] 01/06/2025 6191-1-010 / / [id number] [employer] Simplex P Radiopaque Full Dose Cement Bone Sterile 6191-1-010 - [id number] Implanted:Qty: 1 on 11/24/2022 by Ezequiel Perez MD at [facility] Left: Shoulder [employer] [id number] 04/08/2025 6191-1-010 / / [id number] [employer] Tornier Aequalis Perform 39mm Reverse Shoulder Standard Sphere Uny300 - [id number] - [id number] Implanted:Qty: 1 on 11/24/2022 by Ezequiel Perez MD at [facility] Left: Shoulder [employer] Inc 11/30/2026 KVD839 / [id number] / Bob [employer] Inc 8mm 130mm Shoulder Stem Humeral Trabecular Metal Sterile Reverse [id number] - [id number] Implanted:Qty: 1 on 11/24/2022 by Ezequiel Perez MD at [facility] Left: Shoulder [employer] Inc [id number] 08/22/2032 [id number] / / [id number] [employer] Inc 40mm H+3mm Reverse Retentive Humerus 12d 65d Liner Shoulder [id number] - [id number] Implanted:Qty: 1 on 11/24/2022 by Ezequiel Perez MD at [facility] Left: Shoulder [employer] Inc [id number] 05/09/2027 [id number] / / [id number] Synthes 3.5mm 6mm 26mm 2.5mm Self Tap Small Hexagonal Socket Low Profile 204.826 - [id number] Implanted:Qty: 3 on 11/24/2022 by Ezequiel Perez MD at [facility] Left: Humerus Synthes I 204.826 / / Synthes 3.5mm 6mm 30mm 2.5mm Self Tap Small Hexagonal Socket Low Profile 204.830 - [id number] Implanted:Qty: 1 on 11/24/2022 by Ezequiel Perez MD at [facility] Left: Humerus Synthes I 204.830 / / Synthes 3.5mm 6mm 28mm 2.5mm Self Tap Small Hexagonal Socket Low Profile 204.828 - [id number] Implanted:Qty: 4 on 11/24/2022 by Ezequiel Perez MD at [facility] Left: Humerus Synthes I 204.828 / / Procedures Procedure Name Priority Date/Time Associated Diagnosis Comments ERYTHROCYTE SEDIMENTATION RATE Routine 06/23/2025 10:17 AM RETAIL SHIFT MANAGER Aftercare following left hip joint replacement surgery Hip pain, left CRP (ACUTE PHASE) Routine 06/23/2025 10: 17 AM RETAIL SHIFT MANAGER Aftercare following left hip joint replacement surgery Hip pain, left HEPATITIS PANEL, ACUTE Routine 10:47 AM RETAIL SHIFT MANAGER from Last 3 Months or Most Recently Relevant to Health Maintenance Results * Erythrocyte sedimentation rate (06/23/2025 10:17 AM RETAIL SHIFT MANAGER) Pathologist [facility] Erythrocyte sedimentation rate 13 1 - 20 mm/hr Blood 06/23/2025 10:1 7 AM RETAIL SHIFT MANAGER 06/23/2025 2:19 PM RETAIL SHIFT MANAGER Violette Mckeon BRAND INSPECTOR LAB BLOOD ORDERABLES Velvet l Result Performing Organization Address [facility] Co de Phone Number [address] [place] [address] * CRP (acute phase) (06/23/2025 10:17 AM RETAIL SHIFT MANAGER) [facility] CRP 7.7 <=10.0 mg/L Blood 06/23/2025 10:1 7 AM RETAIL SHIFT MANAGER 06/23/2025 2:26 PM RETAIL SHIFT MANAGER Violette Mckeon BRAND INSPECTOR LAB BLOOD ORDERABLES Velvet l Result Performing Organization Address [facility] Co de Phone Number [address] [place] [address] * Hepatitis panel, acute (08/30/2019 10:47 AM RETAIL SHIFT MANAGER) Pathologist [facility] Hep A IgM Nonreactive Nonreactive [facility] Comment: Interpretive Data If test is reported as GRAYZONE, new sample should be drawn in two weeks for testing. Current interpretive data was last revised on 2016. Hep B core IgM Nonreactive Nonreactive [facility] Comment: Interpretive Data If test is reported as GRAYZONE, new sample should be drawn for testing. Current interpretive data was last revised on 2016. Hep C Ab Nonreactive Nonreactive [facility] Comment: Interpretive Data Positive results should be confirmed by a molecular method. If positive, a second separately collected sample should be submitted for Hepatitis C Virus (HCV) RNA Detection and Quantitation by Real-Time Reverse Family Coach-PCR (RT-PCR). Current interpretive data was last revised on 2016. HepBsAg Nonreactive Nonreactive [facility] Blood specimen (specimen) 08/30/2019 10:47 AM RETAIL SHIFT MANAGER 08/30/2019 11:10 AM RETAIL SHIFT MANAGER Amanda Mosquera MD LAB MICROBIOLOGY - GENERAL ORDERABLES Final Result [facility] [place] [address] from Last 3 Months or Most Recently Relevant to Health Maintenance Insurance [facility] MEDICARE AETNA MEDICARE AETNA MEDICARE AETNA MEDICARE AETNA MEDICARE Advance Directives For more information, please contact: [phone] * Full Code (Latest Code Status on File) Date Activated Date Inactivated Comments 09/20/2023 11:08 PM 09/25/2023 5:58 PM * Full Code Date Activated Date Inactivated Comments 11/25/2022 12:07 AM 11/25/2022 8:50 PM * Full Code Date Activated Date Inactivated Comments 12/29/2020 2:17 PM 12/29/2020 9:32 PM * Full Code Date Activated Date Inactivated Comments 09/10/2019 8:35 PM 09/12/2019 9:23 PM * Full Code Date Activated Date Inactivated Comments 08/29/2019 10:26 PM 09/02/2019 8:27 PM Care Teams Studio Data Analyst Relationship Specialty Start Date End Date Aki Grande DO PCP - General Internal Medicine 10/15/24 Silas Mcdonnell MD PhD Neurologist Neurology 06/26/19 Fabrice Bahena MD PhD Referring Physician Cardiology 08/09/19 Greg Espinoza MD Surgeon General Surgery 08/26/19
== END 2025-07-07 08:12 | disposition home or self-care (01) ==
PROVIDERS: PCP Internal Medicine; Visit Provider Nurse Practitioner
DX: M54.2 Cervicalgia (principal); M25.512 Pain in left shoulder
CPT/HCPCS: 72040; 73030